=== PATIENT | female | born 1980 | race Caucasian/White ===

== ENCOUNTER 2021-12-25 18:05 | Outpatient (CLI) | payer OTHER, SELFPAY | END 2021-12-25 18:06 | disposition home or self-care (01) | LOC: LKVREF 12-29 14:53 | PROVIDERS: Visit Provider Nurse Practitioner Family | DX: N39.0 Urinary tract infection, site not specified (principal); R30.0 Dysuria | CPT/HCPCS: 87086; 87186 ==

== ENCOUNTER 2022-02-21 10:46 | Outpatient (CLI) | payer OTHER, SELFPAY ==
[2022-02-21 21:44] LABS: Chloride* 109 mmol/L (96-114)
[2022-02-21 21:45] LABS: Potassium* 4.4 mmol/L (3.6-5.1); Sodium* 141 mmol/L (135-149)
[2022-02-21 21:47] LABS: Creatinine* 0.7 mg/dL (0.5-1.5); Estimated Glomerular Filt Rate 110 ml/min
[2022-02-21 21:48] LABS: Blood Urea Nitrogen* 17 mg/dL (5-24); Calcium* 9.3 mg/dL (8.4-10.6); Carbon Dioxide* 25 mmol/L (20-32); Glucose* 66 mg/dL (60-115)
== END 2022-02-21 10:47 | disposition home or self-care (01) ==
PROVIDERS: PCP Emergency Medicine; Visit Provider Emergency Medicine
DX: R30.0 Dysuria (principal); I10 Essential (primary) hypertension
CPT/HCPCS: 80048; 87086

== ENCOUNTER 2022-03-22 10:42 | Outpatient (CLI) | payer OTHER, BC, SELFPAY | END 2022-03-22 10:43 | disposition home or self-care (01) | LOC: OP CLINIC 10:44 | PROVIDERS: PCP Emergency Medicine; Visit Provider Surgery | DX: K62.5 Hemorrhage of anus and rectum (principal); K63.5 Polyp of colon; K64.8 Other hemorrhoids; K57.30 Diverticulosis of large intestine without perforation or abscess without bleeding | CPT/HCPCS: 45385; 88305; J1200; J2250; J3010 ==

== ENCOUNTER 2023-06-17 07:48 | Emergency (ER) | payer BC, SELFPAY ==
[2023-06-17] VITALS (30 sets, daily range): BP systolic 114–152; BP diastolic 75–129; PULSE 51–71; RESP 18; TEMP 36.1; O2SAT 93–100; BMI 33.3
--- NOTE | 2023-06-17 08:05 | ED.ABDPAIN ---
HPI - Abdominal Pain General Time Seen by Provider: 08:05 Date Seen: 06/17/23 Chief Complaint: Abdominal Pain Stated Complaint: stomach pains radiating to back Time Seen by Provider: 06/17/23 08:04 Source: patient Mode of arrival: ambulatory Limitations: no limitations History of Present Illness HPI narrative: Louise is a very pleasant 43-year-old female with history of pancreatitis 10 years ago unknown etiology, cholecystectomy 15 years ago without complications who comes to the emergency room with the onset of upper abdominal pain at approximately 0530 while she was at work. Patient notes that she had similar occurrence about a year ago, went to the emergency room but after 3 hours of waiting by the time she was seen her pain was resolving. Discomfort today is located in that epigastrium and radiates around both sides of her back pain seems to be a little more severe on the right CVA area. She is nauseated but has not vomited. She does feel somewhat bloated but more of a pressure in her upper abdomen. She has not had any diarrhea or constipation. No fever to report but feels like she has had chills since the onset of her pain. Occasional use of alcohol, no recent trauma, no chest pain to report. Related Data Home Medications Medication Instructions Recorded Confirmed amlodipine 5 mg tablet 5 mg PO 12/25/21 05/22/23 lisinopril 06/17/23 Allergies Allergy/AdvReac Type Severity Reaction Status Date / Time acetaminophen [From Vicodin] Allergy Severe Hives Verified 05/22/23 13:45 hydrocodone [From Vicodin] Allergy Severe Hives Verified 05/22/23 13:45 insect venom Allergy Severe Anaphylaxis Verified 05/22/23 13:45 latex Allergy Intermediate Rash Verified 05/22/23 13:45 Review of Systems Status of ROS Reports: 10 or more systems reviewed and unremarkable except as noted in History and below Const Reports: chills; Denies: fever ENMT Denies: neck pain, throat swelling or difficulty swallowing Cardio Denies: chest pain or shortness of breath with exertion Resp Denies: shortness of breath GI Reports: abdominal pain and nausea; Denies: vomiting, diarrhea, constipation, difficulty swallowing or blood in stool Denies: painful urination Musculo Reports: back pain; Denies: neck pain Allergy/Immuno Denies: throat swelling PFSH [facility] Medical History Chronic pelvic pain in female ?R10.2 - Pelvic and perineal pain (ICD-10) ?G89.29 - Other chronic pain (ICD-10) Hypertension ?I10 - Essential (primary) hypertension (ICD-10) BRBPR (bright red blood per rectum) ?K62.5 - Hemorrhage of anus and rectum (ICD-10) Epistaxis ?R04.0 - Epistaxis (ICD-10) Dysuria ?R30.0 - Dysuria (ICD-10) Surgical History Hx of cholecystectomy ?Z90.49 - Acquired absence of other specified parts of digestive tract (ICD-10) History of appendectomy ?Z90.49 - Acquired absence of other specified parts of digestive tract (ICD-10) Family History Mother Diabetes Osteoporosis Thyroid disease Depression Aunt Thyroid disease Family/Other Depression Abuse, drug or alcohol Maternal Grandfather Diabetes Stroke Heart disease Family/Other Depression Social History Smoking Status: Former smoker How often do you have a drink containing alcohol: 2-4 times a month AUDIT-C Alcohol total score: 2 Non-prescribed substance use: marijuana (any form) Little interest or pleasure in doing things: several days Exam Narrative: Exam Narrative: Louise is alert and oriented. She is in obvious discomfort. Eyes are clear. No evidence of jaundice. Face is symmetrical. Speaking normally. Neck is supple. No lymphadenopathy Heart with a regular rate and rhythm. Lungs are clear bilaterally. Abdomen shows tenderness throughout. Bowel sounds are decreased but present. Moving all extremities. No unusual rashes noted. Const: Vital Signs, click to edit/add: Vital Signs - 24 hr 06/17/23 07:49 06/17/23 09:39 06/17/23 09:40 Temperature 97 F L Pulse Rate 51 L 57 L Pulse Rate [Pulse Oximeter] 64 Respiratory Rate 18 Blood Pressure 142/89 H Blood Pressure [Ri ght Upper Arm] 139/84 Pulse Oximetry 100 100 100 Oxygen Delivery Me thod Room Air 06/17/23 09:45 06/17/23 10:00 06/17/23 10:02 Temperature Pulse Rate 66 58 L 61 Pulse Rate [Pulse Oximeter] Respiratory Rate Blood Pressure 119/79 Blood Pressure [Ri ght Upper Arm] Pulse Oximetry 97 93 94 Oxygen Delivery Me thod 06/17/23 10:15 06/17/23 10:30 06/17/23 10:32 Temperature Pulse Rate 59 L 61 61 Pulse Rate [Pulse Oximeter] Respiratory Rate Blood Pressure 114/75 Blood Pressure [Ri ght Upper Arm] Pulse Oximetry 94 97 98 Oxygen Delivery Me thod 06/17/23 10:45 06/17/23 11:00 06/17/23 11:02 Temperature Pulse Rate 57 L 57 L 66 Pulse Rate [Pulse Oximeter] Respiratory Rate Blood Pressure 133/87 Blood Pressure [Ri ght Upper Arm] Pulse Oximetry 98 98 95 Oxygen Delivery Me thod 06/17/23 11:03 06/17/23 11:15 06/17/23 15:22 Temperature Pulse Rate 58 L 55 L 60 Pulse Rate [Pulse Oximeter] Respiratory Rate Blood Pressure 144/129 H Blood Pressure [Ri ght Upper Arm] Pulse Oximetry 98 99 98 Oxygen Delivery Me thod 06/17/23 15:23 06/17/23 15:29 06/17/23 15:30 Temperature Pulse Rate 59 L 66 63 Pulse Rate [Pulse Oximeter] Respiratory Rate Blood Pressure 144/113 H Blood Pressure [Ri ght Upper Arm] Pulse Oximetry 98 99 98 Oxygen Delivery Me thod 06/17/23 15:45 06/17/23 16:00 06/17/23 16:15 Temperature Pulse Rate 56 L 58 L 51 L Pulse Rate [Pulse Oximeter] Respiratory Rate Blood Pressure Blood Pressure [Ri ght Upper Arm] Pulse Oximetry 98 95 98 Oxygen Delivery Me thod 06/17/23 16:30 06/17/23 16:32 06/17/23 16:45 Temperature Pulse Rate 71 55 L 55 L Pulse Rate [Pulse Oximeter] Respiratory Rate Blood Pressure 152/90 H Blood Pressure [Ri ght Upper Arm] Pulse Oximetry 96 95 94 Oxygen Delivery Me thod 06/17/23 17:00 06/17/23 17:02 Temperature Pulse Rate 57 L 55 L Pulse Rate [Pulse Oximeter] Respiratory Rate Blood Pressure 130/80 Blood Pressure [Ri ght Upper Arm] Pulse Oximetry 96 98 Oxygen Delivery Me thod Documenting provider has reviewed patient's vital signs: yes Course Course ED Course: At this time differential diagnosis includes but is not limited to small-bowel obstruction, colitis, viral gastroenteritis, pancreatitis, angina, constipation. Will place an IV and give Toradol 15 mg IV, Zofran 4 mg IV and 1 L of normal saline. Labs will include CBC, comprehensive, lactate, lipase, CRP, troponin. Will also perform EKG and abdominal CT with contrast. Patient and her are comfortable with this plan Reevaluation(s) Reevaluation #1: Post Toradol and Zofran administration patient feels like her pain is gone from 8 down to 3. 1027 hours-patient continues to feel well. CT results show a dilated common bile duct. Her LFTs are elevated. I had the pleasure of speaking with our director surgical Dr. Avitia who does suggest MRCP and GI consult for possible EUS. Reevaluation #2: Patient has remained stable and Toradol controlled her pain for extended period. She is now requesting pain medicine and Dilaudid 0.5 mg IV is given. In spite of a allergy to Vicodin which caused hives she has been tolerant of Dilaudid in the past. Her transfers still pending. Consultations Consultation #1: I consulted with Dr. Valdivia, GI specialist who does suggest transfer and admission for EUS. Vital Signs Vital signs: Initial Vital Signs Temperature 97 F L 06/17/23 07:49 Temperature Source Temporal Artery Scan 06/17/23 07:49 Pulse Rate 64 06/17/23 07:49 Respiratory Rate 18 06/17/23 07:49 Blood Pressure 139/84 06/17/23 07:49 Blood Pressure Mean 102 06/17/23 07:49 Blood Pressure Position Supine 06/17/23 07:49 Pulse Oximetry 100 06/17/23 07:49 Oxygen Delivery Method Room Air 06/17/23 07:49 Vital Signs Temperature 97 F L 06/17/23 07:49 Pulse Rate 64 06/17/23 07:49 Respiratory Rate 18 06/17/23 07:49 Blood Pressure 139/84 06/17/23 07:49 Pulse Oximetry 100 06/17/23 07:49 Oxygen Delivery Method Room Air 06/17/23 07:49 Temperature 97 F L 06/17/23 07:49 Pulse Rate 55 L 06/17/23 17:02 Respiratory Rate 18 06/17/23 07:49 Blood Pressure 130/80 06/17/23 17:02 Pulse Oximetry 98 06/17/23 17:02 Oxygen Delivery Method Room Air 06/17/23 07:49 Medications Administered Medications: Generic Name Dose Route Start Last Admin Trade Name Arlette PRN Reason Stop Dose Admin Sodium Chloride 1,000 mls @ 125 mls/hr 06/17/23 14:43 06/17/23 15:23 0.9 % Sodium Chloride 1000 Ml IV 125 mls/hr .Q8H JARRED Administration Discontinued Medications Generic Name Dose Route Start Last Admin Trade Name Arlette PRN Reason Stop Dose Admin Hydromorphone HCl 0.5 mg 06/17/23 15:23 06/17/23 15:28 Hydromorphone 0.5 Mg/0.5 Ml Inj IVP 06/17/23 15:24 0.5 mg ONCE ONE Administration Sodium Chloride 1,000 mls @ 1,000 mls/hr 06/17/23 08:17 06/17/23 10:00 0.9 % Sodium Chloride 1000 Ml IV 06/17/23 09:16 Infused .Q1H JARRED Infusion Ketorolac Tromethamine 15 mg 06/17/23 08:15 06/17/23 08:40 Ketorolac 15 Mg/Ml Inj IVP 06/17/23 08:16 15 mg ONCE ONE Administration Ondansetron HCl 4 mg 06/17/23 08:15 06/17/23 08:40 Ondansetron 2 Mg/Ml Inj IVP 06/17/23 08:16 4 mg ONCE ONE Administration MDM - Abdominal Pain MDM Narrative Medical decision making narrative: 1. Abdominal pain-this is much improved after Toradol and Zofran. Normal saline fluids given. 2. Dilated common bile duct-initial CT showed dilation of the common bile duct to 10 mm. Associated elevated liver function tests noted in the absence of a gallbladder. AST elevated to 297 and ALT to 123. Lipase, alkaline phosphatase and bilirubin all within normal limits. White count, CRP, lactate and lipase all within normal limits and there is no evidence of pancreatitis on CT. MRCP accomplished shows dilatation to the level of the ampullary. No obvious stone or mass but appearance is concerning for some sort of obstruction. I initially spoke with GI Dr. Valdivia who suggests EUS. I then spoke to Dr. Rodriguez, hospitalist who has accepted the patient to [facility]. Unfortunately there will be a 4-8 hour delay and therefore patient will be placed back on maintenance fluids. 3. Disposition-transfer to [facility] once we are cleared to go. Dr. Rodriguez has accepted this patient. Patient and her significant other are thinking about private vehicle which at this time I feel is fine given that there is no evidence of sepsis. Lab Data Attestation: I reviewed the patient's lab results. Labs: Lab Results 06/17/23 06/17/23 06/17/23 Range/Units 07:59 08:15 08:26 WBC 7.82 (4.50-11.00) K/uL RBC 4.23 (4.00-5.20) m/uL Hgb 12.4 (12.0-16.0) gm/dL Hct 38.0 (33.0-51.0) % MCV 90 (80-100) fL MCH 29 (26-34) pg MCHC 33 (32-36) gm/dL RDW Coeff of Alexus 13.1 (11.5-15.5) % Plt Count 259 (140-440) K/uL Neut % (Auto) 75.3 H (42.0-72.0) % Lymph % (Auto) 14.3 L (20-44) % [place] % (Auto) 9.6 (0.0-11.0) % Eos % (Auto) 0.4 (0.0-7.0) % Baso % (Auto) 0.4 (0.0-3.0) % Neut # (Auto) 5.90 (1.7-7.0) K/uL Lymph # (Auto) 1.10 (0.90-2.90) K/uL [place] # (Auto) 0.80 (0.00-0.90) K/UL Eos # (Auto) 0.03 (0.00-0.50) K/uL Baso # (Auto) 0.03 (0.00-0.30) K/uL Abs Immat Gran (auto) 0.00 (0.00-0.30) K/uL Imm/Tot Granulo (auto) 0.0 % Sodium 138 (135-149) mmol/L Potassium 3.5 L (3.6-5.1) mmol/L Chloride 110 (96-114) mmol/L Carbon Dioxide 22 (20-32) mmol/L Anion Gap 6 L (7-15) mEq/L BUN 11 (5-24) mg/dL Creatinine 0.7 (0.5-1.5) mg/dL Estimated Creat Clear 91.32 Estimated GFR 109 ml/min Glucose 110 (60-115) mg/dL Lactate 1.8 (0.5-1.9) mmol/L Calcium 9.4 (8.4-10.6) mg/dL Total Bilirubin 1.1 (0.1-1.5) mg/dL AST 294 H (12-35) U/L ALT 123 H (4-35) U/L Alkaline Phosphatase 149 (40-150) U/L C-Reactive Protein < 0.5 L (0.5-1.0) mg/dL Total Protein 7.6 (6.0-8.3) g/dL Albumin 4.3 (3.3-5.0) g/dL Lipase 128 (23-300) U/L Urine Color Yellow (Yellow) Urine Appearance Clear (Clear) Urine pH 7.0 (5.0-8.5) Ur Specific [place] 1.015 (1.000-1.030) Urine Protein Negative (Negative) Urine Glucose (UA) Negative (Negative) Urine Ketones Negative (Negative) Urine Blood Negative (Negative) Urine Nitrite Negative (Negative) Urine Bilirubin Negative (Negative) Urine Urobilinogen 0.2 (0.2-1.0) Ur Leukocyte Esterase Negative (Negative) Urine RBC 0-2 (0-2) Urine WBC 2-5 (0-5) Ur Squamous Epith Cells Few (None-Few) Urine Bacteria Few A (None) Lab Acknowledgement Test Added POC Troponin I 0.00 L (0.01-0.04) ng/ml Imaging Data CT scan - abdomen: Attestation: I have reviewed the pertinent imaging results. My impression: I do not note any pancreatitis. Radiologist's impression: 1. Moderate intra and extrahepatic biliary ductal dilation with the common duct measuring about 10 millimeters. This might be a reservoir phenomena associated with prior cholecystectomy. A somewhat prominent. Correlate with LFTs. Follow-up evaluation should be considered as clinically warranted. 2. The kidneys appear normal without specific breast because for CVA tenderness. There is no evidence of pancreatitis by CT MRCP abdomen: Attestation: I have reviewed the pertinent imaging results. Radiologist's impression: Moderate extrahepatic ductal dilation to the level of the ampulla without definite mass or stone. There is some abrupt cut off/shouldering which could suggest ampullary dysfunction. Recommend trending of LFTs, bilirubin. If there is persistent clinical concern, consider endoscopic evaluation for more definitive diagnosis. Incidentally, there is a rounded hypointensity in the proximal common bile duct (series 11/image 18), only seen on some sequences and favored to be related to artifact from adjacent cholecystectomy clips. Please refer to final dictated report for further evaluation. ECG Data Attestation: I personally reviewed and interpreted this ECG as follows: ECG interpretation date: 06/17/23 Interpretation: EKG by my read shows sinus bradycardia at a rate of 58. I do not note any acute ST or T-wave changes. QT and NE intervals within normal limits. Discharge Plan Discharge Clinical Impression: Common bile duct dilatation, Elevated liver function tests Abdominal pain Qualifiers: Abdominal location: epigastric Qualified Code(s): R10.13 - Epigastric pain Patient Disposition: [facility] Discharge Location: [facility] Condition: Improved
[2023-06-17 08:06] LABS: Appearance Urine Clear (Clear); Bilirubin Urine Negative (Negative); Blood Urine Negative (Negative); Color Urine Yellow (Yellow); Glucose Urine Negative (Negative); Ketones Urine Negative (Negative); Leukocyte Esterase Urine Negative (Negative); Nitrite Urine Negative (Negative); Protein Urine Negative (Negative); Specific Gravity Urine 1.015 (1.000-1.030); Urobilinogen Urine 0.2 (0.2-1.0)
--- NOTE | 2023-06-17 08:18 | CT_ITS ---
Patient: KAYLIN NEWSOME Facility:?[facility] Patient ID:?[id number] Site Patient ID:?[id number]. Site :?1980 Study:?CT-Abdomen/Pelvis w/ 98cc [id number]/18/2024 9:28:59 AM Ordering Physician:Keri Martinez Final Report: INDICATION: Epigastric and right CVA pain. History of cholecystectomy and pancreatitis. COMPARISON: There are no prior CTs available for comparison. TECHNIQUE: CT examination of the abdomen and pelvis was performed following the uneventful intravenous administration of 98 cc of Isovue 370. Thin section axial images were obtained from the lung bases through the pubic symphysis. Oral contrast was not administered. Please note that all CT scans at this facility use dose modulation, iterative reconstruction, and/or weight-based dosing when appropriate to reduce radiation dose to as low as reasonably achievable. FINDINGS: LUNG BASES: The lung bases as visualized appear normal.The heart size is normal at the lung bases. LIVER/BILIARY SYSTEM:There is hepatic steatosis. There is moderate intra and extrahepatic biliary ductal dilation with the common duct measuring about 10 millimeters. This may be reservoir phenomena associated with cholecystectomy but somewhat prominent for patient age. Correlate with LFTs and further evaluation as clinically warranted.The gallbladder is surgically absent ADRENALS: Normal KIDNEYS, URETERS and BLADDER:The kidneys appear normal. No visible mass, calculus or hydronephrosis. The ureters and bladder as visualized appear normal. SPLEEN:Normal appearance. PANCREAS: Appears normal. RETROPERITONEUM and MESENTERY: There is no mass, adenopathy or aortic aneurysm. GASTROINTESTINAL SYSTEM: There is no evidence of diverticulitis, colitis, mechanical obstruction, or appendicitis. The small bowel as visualized appears normal. PELVIS: No mass, adenopathy or free fluid. OSSEOUS STRUCTURES and ABDOMINAL WALL: There is an age-appropriate appearance of the osseous structures.No significant abdominal wall defect. OTHER: No free fluid or free air. IMPRESSION: 1. Moderate intra and extrahepatic biliary ductal dilation with the common duct measuring about 10 millimeters. This might be a reservoir phenomena associated with prior cholecystectomy. A somewhat prominent. Correlate with LFTs. Follow-up evaluation should be considered as clinically warranted. 2. The kidneys appear normal without specific breast because for CVA tenderness. There is no evidence of pancreatitis by CT Please note that all CT scans at this facility use dose modulation, iterative reconstruction, and/or weight-based dosing when appropriate to reduce radiation dose to as low as reasonably achievable. Dictated by Kevon Tan MD @ 06/17/2023 9:58:16 AM Signed by:?Kevon Tan MD @06/17/2023 9:58:16 AM
[2023-06-17 08:28] LABS: Bacteria Urine Few; RBC Urine 0-2 (0-2); Squamous Epithelial Cell Urine Few (None-Few)
[2023-06-17 08:34] LABS: Lactate* 1.8 mmol/L (0.5-1.9)
[2023-06-17 08:36] LABS: Hemoglobin* 12.4 gm/dL (12.0-16.0); Mean Corpuscular HGB Conc 33 gm/dL (32-36); Mean Corpuscular Hemoglobin 29 pg (26-34); Mean Corpuscular Volume 90 fL (80-100); Neutrophils Percent Auto 75.3 % (42.0-72.0); Platelet Count* 259 K/uL (140-440); RDW Coefficient of Variation % 13.1 % (11.5-15.5); Red Blood Count 4.23 m/uL (4.00-5.20); White Blood Count* 7.82 K/uL (4.50-11.00)
[2023-06-17 08:37] LABS: Basophils Absolute Auto 0.03 K/uL (0.00-0.30); Basophils Percent Auto 0.4 % (0.0-3.0); Eosinophils Absolute Auto 0.03 K/uL (0.00-0.50); Eosinophils Percent Auto 0.4 % (0.0-7.0); Lymphocytes Percent Auto 14.3 % (20-44); Monocytes Percent Auto 9.6 % (0.0-11.0)
[2023-06-17 08:38] LABS: Slide Review Reflex No
[2023-06-17] MEDS: KETOROLAC 15 MG/ML inj IVP (08:40)
[2023-06-17] MEDS: 0.9 % SODIUM CHLORIDE 1000 ml 1,000 ML IV (08:40)
[2023-06-17] MEDS: ONDANSETRON 2 MG/ML inj 4 MG IVP (08:40)
[2023-06-17 08:57] LABS: Albumin* 4.3 g/dL (3.3-5.0); Chloride* 110 mmol/L (96-114)
[2023-06-17 08:58] LABS: Potassium* 3.5 mmol/L (3.6-5.1); Sodium* 138 mmol/L (135-149)
[2023-06-17 09:00] LABS: Bilirubin Total* 1.1 mg/dL (0.1-1.5); Creatinine* 0.7 mg/dL (0.5-1.5); Est. Creatinine Clearance* 91.32; Estimated Glomerular Filt Rate 109 ml/min
[2023-06-17 09:01] LABS: Alanine Aminotransferase* 123 U/L (4-35); Alkaline Phosphatase* 149 U/L (40-150); Anion Gap 6 mEq/L (7-15); Aspartate Amino Transferase* 294 U/L (12-35); Blood Urea Nitrogen* 11 mg/dL (5-24); Calcium* 9.4 mg/dL (8.4-10.6); Carbon Dioxide* 22 mmol/L (20-32); Glucose* 110 mg/dL (60-115); Lipase* 128 U/L (23-300); Total Protein* 7.6 g/dL (6.0-8.3)
[2023-06-17 09:05] LABS: C Reactive Protein* < 0.5 mg/dL (0.5-1.0)
--- NOTE | 2023-06-17 10:32 | MR_ITS ---
Patient: KAYLIN NEWSOME Facility:?[facility] Patient ID:?[id number] Site Patient ID:?[id number] Site :?1980 Study:?MRI-Abdomen W/O MRCP-06/17/2023 12:41:46 PM Ordering Physician:?APRIL GALAVIZ Final Report: INDICATION: Dilated common bile duct. Elevated LFTs. COMPARISON: CT scan of the abdomen and pelvis dated 17 June 2023. TECHNIQUE: Abdominal MRI with T1 and T2 weighted images. No gadolinium administered. Heavily T2 weighted 2D and 3D MRCP images. Findings : No fatty infiltration of the liver. No focal abnormalities identified in the visualized portions of the liver, spleen, pancreas, adrenal glands, and kidneys. No hydronephrosis. Cholecystectomy. Mildly dilated common bile duct measuring up to 1.1 cm. No intrahepatic bile duct dilation. No filling defects in the biliary system. Normal size of the main pancreatic duct. Impression : 1. Mild dilation of the common bile duct with no intrahepatic bile duct dilation. This could be secondary to a previously passed stone. No current choledocholithiasis. 2. Normal size of the main pancreatic duct. Dictated by Jamel Aponte MD @ 06/18/2023 6:52:46 PM Signed by:?Jamel Aponte MD @06/18/2023 6:52:46 PM (Electronic Signature)
[2023-06-17] MEDS: 0.9 % SODIUM CHLORIDE 1000 ml 1,000 ML 125 ML IV (15:23)
[2023-06-17] MEDS: HYDROmorphone 0.5 mg/0.5 ml inj IVP (15:28)
== END 2023-06-17 17:42 | disposition short-term general hospital (02) ==
PROVIDERS: Emergency Provider Family Medicine; PCP Emergency Medicine
DX: K83.8 Other specified diseases of biliary tract (principal); R94.5 Abnormal results of liver function studies
CPT/HCPCS: 36415; 74177; 74181; 80053; 81001; 83605; 83690; 84484; 85025; 86140; 87086; 93005; 96374; 96375; 99285; J1170; J1885; J2405; J7030; Q9967

== ENCOUNTER 2023-06-26 13:19 | Outpatient (CLI) | payer BC, SELFPAY | END 2023-06-26 13:20 | disposition home or self-care (01) | PROVIDERS: PCP Emergency Medicine; Visit Provider Emergency Medicine | DX: I10 Essential (primary) hypertension (principal); R74.01 Elevation of levels of liver transaminase levels; K29.70 Gastritis, unspecified, without bleeding; Z13.6 Encounter for screening for cardiovascular disorders | CPT/HCPCS: 80048; 80061; 80076 ==

== ENCOUNTER 2023-09-18 12:58 | Outpatient (CLI) | payer BC, SELFPAY ==
--- NOTE | 2023-09-18 13:20 | CRLHL7_ITS ---
For Patients: As a result of the Century Cures Act, medical imaging exams and procedure reports are released immediately into your electronic medical record. You may view this report before your referring provider. If you have questions, please contact your health care provider. BILATERAL SCREENING MAMMOGRAM WITH COMPUTER-AIDED DETECTION AND TOMOSYNTHESIS TECHNIQUE: CC and MLO views were obtained. These mammographic images have been obtained using full-field digital technique. These mammographic images were interpreted with the benefit of computer-aided detection. Breast Tomosynthesis was used in this interpretation. COMPARISON FILM: Baseline. FINDINGS: The breasts are heterogeneously dense, which may obscure small masses. IMPRESSION: There is no radiographic evidence for malignancy. ASSESSMENT: BI-RADS Category 1: Negative RECOMMENDATION: Routine screening mammogram in 1 year. A lay language report of this examination will be provided to the patient. Ej Menendez M.D. Diagnostic Radiologist [email or web address] SP/Dictated by: Ej Menendez MD @ 09/19/2023 9:09:00 AM (Electronically Signed)
== END 2023-09-18 12:59 | disposition home or self-care (01) ==
LOC: MAMMO 12:59
PROVIDERS: PCP Emergency Medicine; Visit Provider Emergency Medicine
DX: Z12.31 Encounter for screening mammogram for malignant neoplasm of breast (principal); R92.2 Inconclusive mammogram
CPT/HCPCS: 77063; 77067

== ENCOUNTER 2023-10-07 11:45 | Outpatient (CLI) | payer BC, SELFPAY | END 2023-10-07 11:46 | disposition home or self-care (01) | LOC: NFLDREF 23:37 | PROVIDERS: PCP Emergency Medicine; Referring Provider Emergency Medicine; Visit Provider Nurse Practitioner | DX: N30.01 Acute cystitis with hematuria (principal); B96.20 Unspecified Escherichia coli [E. coli] as the cause of diseases classified elsewhere | CPT/HCPCS: 87086; 87186 ==

== ENCOUNTER 2023-10-10 17:44 | Emergency (ER) | payer BC, SELFPAY ==
[2023-10-10 17:55] VITALS: BP 155/80; PULSE 96; RESP 16; TEMP 37.1; O2SAT 96; BMI 32.1
[2023-10-10 18:23] LABS: Appearance Urine Clear (Clear); Bilirubin Urine Negative (Negative); Blood Urine 1+ (Negative); Color Urine Yellow (Yellow); Glucose Urine Negative (Negative); Ketones Urine Negative (Negative); Leukocyte Esterase Urine Negative (Negative); Nitrite Urine Negative (Negative); Protein Urine Negative (Negative)
[2023-10-10 19:21] LABS: RBC Urine 0-2 (0-2)
[2023-10-10 19:22] LABS: Bacteria Urine Few; Squamous Epithelial Cell Urine Few (None-Few); WBC Urine 0-2 (0-5)
--- NOTE | 2023-10-10 19:26 | ED_ITS ---
HPI - General Adult General Chief complaint: Urogenital Problems, Female Stated complaint: UTI/kidney infection-pain Time Seen by Provider: 10/10/23 19:11 Source: patient Mode of arrival: ambulatory Limitations: no limitations History of Present Illness HPI narrative: 43-year-old female coming in today concerned about UTI symptoms. Patient was diagnosed with a UTI on Saturday and started on Bactrim. She states that she got a call on Saturday to switch her antibiotic and states that she was then put on Macrobid. She has had 3 doses of Macrobid. She continues to have daily fevers, states that she had a fever of 102 today. She continues to have daily chills. She now has increasing pain in the right flank. She denies any blood in her urine. She continues to have dysuria and suprapubic pressure. She is concerned that she is not getting better and comes in today for evaluation. She feels nauseated all the time but has not vomited in the last 5 days. Past surgical history includes appendectomy, cholecystectomy. Related Data Home Medications ?Medication ?Instructions ?Recorded ?Confirmed pantoprazole 40 mg tablet,delayed 40 mg PO BID 06/26/23 10/10/23 release amlodipine 5 mg tablet 5 mg PO DAILY 10/07/23 10/10/23 Previous Rx's ?Medication ?Instructions ?Recorded lisinopril 10 mg tablet 10 mg PO QDAY #90 tabs 06/26/23 sulfamethoxazole 800 1 tab PO BID 7 days #14 tabs 10/07/23 mg-trimethoprim 160 mg tablet nitrofurantoin 100 mg PO BID #14 caps 10/09/23 monohydrate/macrocrystals 100 mg capsule (Macrobid) Allergies Allergy/AdvReac Type Severity Reaction Status Date / Time hydrocodone [From Vicodin] Allergy Severe Hives Verified 10/10/23 17:54 insect venom Allergy Severe Anaphylaxis Verified 10/10/23 17:54 latex Allergy Intermediate Rash Verified 10/10/23 17:54 Review of Systems Status of ROS: Reports: 10 or more systems reviewed and unremarkable except as noted in History and below [facility] Medical History Screening mammogram for breast cancer ?Z12.31 - Encounter for screening mammogram for malignant neoplasm of breast (ICD-10) Hepatic steatosis ?K76.0 - Fatty (change of) liver, not elsewhere classified (ICD-10) Screening for hyperlipidemia ?Z13.220 - Encounter for screening for lipoid disorders (ICD-10) BMI 32.0-32.9,adult ?Z68.32 - Body mass index [BMI] 32.0-32.9, adult (ICD-10) Elevated transaminase level ?R74.01 - Elevation of levels of liver transaminase levels (ICD-10) Gastritis ?K29.70 - Gastritis, unspecified, without bleeding (ICD-10) Pancreatitis ?K85.90 - Acute pancreatitis without necrosis or infection, unspecified (ICD- 10) Chronic pelvic pain in female ?R10.2 - Pelvic and perineal pain (ICD-10) ?G89.29 - Other chronic pain (ICD-10) Hypertension ?I10 - Essential (primary) hypertension (ICD-10) BRBPR (bright red blood per rectum) ?K62.5 - Hemorrhage of anus and rectum (ICD-10) Epistaxis ?R04.0 - Epistaxis (ICD-10) Dysuria ?R30.0 - Dysuria (ICD-10) Surgical History Hx of cholecystectomy ?Z90.49 - Acquired absence of other specified parts of digestive tract (ICD- 10) History of appendectomy ?Z90.49 - Acquired absence of other specified parts of digestive tract (ICD- 10) Family History Mother Diabetes Osteoporosis Thyroid disease Depression Aunt Thyroid disease Family/Other Depression Abuse, drug or alcohol Maternal Grandfather Diabetes Stroke Heart disease Family/Other Depression Brother Suicide Social History Narrative: quit tobacco age 28, 3 etoh/mo, NO NSAIDS, [facility], 24 yr old, 16 yr old, son suicide adopted, daughter adopted , MJ 2x /month Smoking Status: Former smoker How often do you have a drink containing alcohol: 2-4 times a month AUDIT-C Alcohol total score: 2 Non-prescribed substance use: marijuana (any form) Little interest or pleasure in doing things: several days Feeling down, depressed, or hopeless: not at all Exam Narrative: Exam Narrative: Well-nourished well-developed patient in no acute distress. Alert and oriented. Answers questions appropriately. Mood and affect are appropriate. Thoughts are goal oriented and rational. No tangential or magical thinking noted. Patient speaks in full sentences without needing to catch their breath. HEENT: Normocephalic atraumatic. Pupils are equally round reactive to light. Extraocular muscles are intact. Conjunctivae are moist without any icterus noted. Moist mucous membranes. Cardiovascular: Heart is regular rate and rhythm S1 and S2 are present without any murmurs. Lungs: Clear to auscultation bilaterally no wheezes rhonchi or rales are appreciated. Patient takes deep breaths without any discomfort. Abdomen: Soft and nontender nondistended with normal bowel sounds. She does have right-sided CVA tenderness. No suprapubic pain. No pain in the pelvic area. Extremities: Bilateral lower extremities are without edema. Skin: Well perfused. Const: Vital Signs, click to edit/add: Vital Signs - 24 hr 10/10/23 17:55 Temperature 98.8 F Pulse Rate [Pulse Oximeter] 96 Respiratory Rate 16 Blood Pressure [Ri ght Upper Arm] 155/80 H Pulse Oximetry 96 Oxygen Delivery Me thod Room Air Course Course ED Course: UA is unremarkable. She did have 10-25 RBCs in her urine on the 06 of October, today 0-2. CBC shows a slightly elevated white cell count, normal chemistries. We did go ahead and give her a dose of IM Rocephin while she was here. Patient will be sent home with Toradol and she is to continue taking her Macrobid. Vital Signs Vital signs: Initial Vital Signs Temperature 98.8 F 10/10/23 17:55 Temperature Source Temporal Artery Scan 10/10/23 17:55 Pulse Rate 96 10/10/23 17:55 Respiratory Rate 16 10/10/23 17:55 Blood Pressure 155/80 H 10/10/23 17:55 Blood Pressure Mean 105 10/10/23 17:55 Blood Pressure Position Sitting 10/10/23 17:55 Pulse Oximetry 96 10/10/23 17:55 Oxygen Delivery Method Room Air 10/10/23 17:55 Vital Signs Temperature 98.8 F 10/10/23 17:55 Pulse Rate 96 10/10/23 17:55 Respiratory Rate 16 10/10/23 17:55 Blood Pressure 155/80 H 10/10/23 17:55 Pulse Oximetry 96 10/10/23 17:55 Oxygen Delivery Method Room Air 10/10/23 17:55 Temperature 98.8 F 10/10/23 17:55 Pulse Rate 96 10/10/23 17:55 Respiratory Rate 16 10/10/23 17:55 Blood Pressure 155/80 H 10/10/23 17:55 Pulse Oximetry 96 10/10/23 17:55 Oxygen Delivery Method Room Air 10/10/23 17:55 Medical Decision Making MDM Narrative Medical decision making narrative: 43-year-old female with UTI and symptoms concerning for pyelonephritis. Patient has only had 3 doses of the Macrobid so she will continue that. Plan per above. Lab Data Lab results reviewed: Yes I reviewed the patient's lab results Labs: Lab Results 10/10/23 10/10/23 Range/Units 18:09 19:27 WBC 12.59 H (4.50-11.00) K/uL RBC 4.47 (4.00-5.20) m/uL Hgb 12.7 (12.0-16.0) gm/dL Hct 39.4 (33.0-51.0) % MCV 88 (80-100) fL MCH 28 (26-34) pg MCHC 32 (32-36) gm/dL RDW Coeff of Alexus 12.6 (11.5-15.5) % Plt Count 288 (140-440) K/uL Neut % (Auto) 79.5 H (42.0-72.0) % Lymph % (Auto) 9.6 L (20-44) % [place] % (Auto) 9.8 (0.0-11.0) % Eos % (Auto) 0.1 (0.0-7.0) % Baso % (Auto) 0.3 (0.0-3.0) % Neut # (Auto) 10.00 H (1.7-7.0) K/uL Lymph # (Auto) 1.20 (0.90-2.90) K/uL [place] # (Auto) 1.20 H (0.00-0.90) K/UL Eos # (Auto) 0.00 (0.00-0.50) K/uL Baso # (Auto) 0.00 (0.00-0.30) K/uL Abs Immat Gran (auto) 0.10 (0.00-0.30) K/uL Imm/Tot Granulo (auto) 0.7 % Sodium 134 L (135-149) mmol/L Potassium 3.6 (3.6-5.1) mmol/L Chloride 101 (96-114) mmol/L Carbon Dioxide 19 L (20-32) mmol/L Anion Gap 14 (7-15) mEq/L BUN 11 (5-24) mg/dL Creatinine 0.6 (0.5-1.5) mg/dL Estimated Creat Clear 106.55 Estimated GFR 113 ml/min Glucose 119 H (60-115) mg/dL Calcium 9.4 (8.4-10.6) mg/dL Urine Color Yellow (Yellow) Urine Appearance Clear (Clear) Urine pH 7.0 (5.0-8.5) Ur Specific [place] 1.020 (1.000-1.030) Urine Protein Negative (Negative) Urine Glucose (UA) Negative (Negative) Urine Ketones Negative (Negative) Urine Blood 1+ A (Negative) Urine Nitrite Negative (Negative) Urine Bilirubin Negative (Negative) Urine Urobilinogen 2.0 A (0.2-1.0) Ur Leukocyte Esterase Negative (Negative) Urine RBC 0-2 (0-2) Urine WBC 0-2 (0-5) Ur Squamous Epith Cells Few (None-Few) Urine Bacteria Few A (None) Discharge Plan Discharge Clinical Impression: Pyelonephritis Patient Disposition: Home, Self-Care Condition: Stable Additional Instructions: Continue taking Macrobid as prescribed. Okay to take Toradol as needed/as directed for discomfort- take on a full stomach. Continue Tylenol as needed for fevers. If you are not improving in the next 24-48 hours, return to the ER. Toradol sent to [facility]. Prescriptions: No Action pantoprazole 40 mg tablet,delayed release (DR/EC) 40 mg PO BID lisinopril 10 mg tablet 10 mg PO QDAY Qty: 90 3RF amlodipine 5 mg tablet 5 mg PO DAILY sulfamethoxazole-trimethoprim 800-160 mg tablet 1 tab PO BID 7 Days Qty: 14 0RF nitrofurantoin monohyd/m-cryst [Macrobid] 100 mg capsule 100 mg PO BID Qty: 14 0RF Rx Instructions: must administer with a meal/food Follow Up/Referrals: Scarlett Dudley MD [Primary Care Provider] - Stand Alone Forms: MyHealth Info Instructions
[2023-10-10 19:48] LABS: Chloride* 101 mmol/L (96-114); Potassium* 3.6 mmol/L (3.6-5.1); Sodium* 134 mmol/L (135-149)
[2023-10-10 19:50] LABS: Basophils Percent Auto 0.3 % (0.0-3.0); Eosinophils Percent Auto 0.1 % (0.0-7.0); Hematocrit 39.4 % (33.0-51.0); Hemoglobin* 12.7 gm/dL (12.0-16.0); Immature Granulocytes Pct Auto 0.7 %; Lymphocytes Percent Auto 9.6 % (20-44); Mean Corpuscular HGB Conc 32 gm/dL (32-36); Mean Corpuscular Hemoglobin 28 pg (26-34); Mean Corpuscular Volume 88 fL (80-100); Monocytes Percent Auto 9.8 % (0.0-11.0); Neutrophils Percent Auto 79.5 % (42.0-72.0); Platelet Count* 288 K/uL (140-440); RDW Coefficient of Variation % 12.6 % (11.5-15.5); Red Blood Count 4.47 m/uL (4.00-5.20); White Blood Count* 12.59 K/uL (4.50-11.00)
[2023-10-10 19:51] LABS: Anion Gap 14 mEq/L (7-15); Blood Urea Nitrogen* 11 mg/dL (5-24); Calcium* 9.4 mg/dL (8.4-10.6); Carbon Dioxide* 19 mmol/L (20-32); Creatinine* 0.6 mg/dL (0.5-1.5); Est. Creatinine Clearance* 106.55; Estimated Glomerular Filt Rate 113 ml/min; Glucose* 119 mg/dL (60-115)
[2023-10-10 19:59] LABS: Slide Review Reflex No
[2023-10-10] MEDS: LIDOCAINE 1% 5 ml (pf) 5 ML VIAL 2.1 ML IM (20:28)
[2023-10-10] MEDS: cefTRIAXone 1 GM VIAL IM (20:28)
== END 2023-10-10 20:29 | disposition home or self-care (01) ==
PROVIDERS: Emergency Provider Family Medicine; PCP Emergency Medicine
DX: N10 Acute pyelonephritis (principal)
CPT/HCPCS: 36415; 80048; 81001; 85025; 87086; 96372; 99283; 99284; J0696

== ENCOUNTER 2024-10-21 09:23 | Outpatient (CLI) | payer MEDICAID, SELFPAY | END 2024-10-21 09:24 | disposition home or self-care (01) | PROVIDERS: PCP Nurse Practitioner Family; Visit Provider Nurse Practitioner Family | DX: R74.01 Elevation of levels of liver transaminase levels (principal); K76.0 Fatty (change of) liver, not elsewhere classified; R53.83 Other fatigue; M25.50 Pain in unspecified joint | CPT/HCPCS: 80053; 80061; 80076; 82728; 84443; 86038; 86431 ==

== ENCOUNTER 2024-10-23 14:09 | Outpatient (CLI) | payer MEDICAID, SELFPAY ==
[2024-10-26 18:33] LABS: HPV Source Endocervical
[2024-10-29 11:47] LABS: Pap Test Digital Imaging Done
== END 2024-10-23 14:10 | disposition home or self-care (01) ==
PROVIDERS: PCP Nurse Practitioner Family; Visit Provider Nurse Practitioner Family
DX: Z12.4 Encounter for screening for malignant neoplasm of cervix (principal); Z11.51 Encounter for screening for human papillomavirus (HPV)
CPT/HCPCS: 87624; 87625; 88141; 88142; 88175

== ENCOUNTER 2024-12-08 13:45 | Outpatient (CLI) | payer BC, SELFPAY ==
--- NOTE | 2024-12-08 14:00 | CRLHL7_ITS ---
For Patients: As a result of the Century Cures Act, medical imaging exams and procedure reports are released immediately into your electronic medical record. You may view this report before your referring provider. If you have questions, please contact your health care provider. CLINICAL HISTORY: Pelvic and perineal pain COMPARISON: CT 06/17/2023 TECHNIQUE: 2D cowan-scale ultrasound. In addition, color Doppler and spectral Doppler analysis was performed of the pelvis using a transabdominal and transvaginal approach. Transvaginal imaging performed to better visualize the endometrial stripe and ovaries. FINDINGS: Heterogeneous myometrium echotexture. Uterus measures 6.9 x 4.2 x 4.9 cm. Endometrium measures 6 millimeters. The right ovary measures 3.2 x 1.6 x 2.3 cm in size and the left ovary measures 2.6 x 1.5 x 1.6 cm. The ovaries demonstrate normal arterial and venous blood flow on color Doppler and spectral Doppler analysis. There are no suspicious fluid collections within the cul-de-sac. IMPRESSION: Normal ovaries. No suspicious findings. Dictated by Ej Menendez MD @ 12/08/2024 4:12:19 PM (Electronically Signed)
== END 2024-12-08 13:46 | disposition home or self-care (01) ==
LOC: US 13:46
PROVIDERS: PCP Nurse Practitioner Family; Visit Provider Nurse Practitioner Family
DX: R10.2 Pelvic and perineal pain (principal)
CPT/HCPCS: 76830; 76856; 93976

== ENCOUNTER 2024-12-31 15:24 | Outpatient (CLI) | payer BC, SELFPAY | END 2024-12-31 15:25 | disposition home or self-care (01) | PROVIDERS: PCP Nurse Practitioner Family; Visit Provider Obstetrics & Gynecology | DX: N95.1 Menopausal and female climacteric states (principal) | CPT/HCPCS: 82306; 82670; 83001; 84403 ==

== ENCOUNTER 2025-01-25 12:53 | Outpatient (CLI) | payer BC, SELFPAY ==
--- NOTE | 2025-01-25 14:24 | P.ANES_ITS ---
Anesthesia Charges Start Date/Time Anesthesia Start Date: 01/25/25 Anesthesia Start Time: 13:55 Stop Date/Time Anesthesia Stop Date: 01/25/25 Anesthesia Stop Time: 14:20 Coding CPT Codes CPT Codes: ADOLPH LWR INTST NDSC NOS - 17845 ([id number]) P2 - PATIENT W/MILD SYST DISEASE, QK - PLACING JUDGE 2-4 CNCRNT ANES PROC, QX - STEWARD/STEWARDESS CHIEF CARGO VESSEL SVC W/ MD MED DIRECTION
--- NOTE | 2025-01-25 14:24 | W.ANESCHARGE ---
Anesthesia Charges Start Date/Time Anesthesia Start Date: 01/25/25 Anesthesia Start Time: 13:55 Stop Date/Time Anesthesia Stop Date: 01/25/25 Anesthesia Stop Time: 14:20 Coding CPT Codes CPT Codes: ADOLPH LWR INTST NDSC NOS - [id number] ([id number]) P2 - PATIENT W/MILD SYST DISEASE, QK - ENVIRONMENTAL PROFESSIONAL 2-4 CNCRNT ANES PROC, QX - ORDER ENTRY SPECIALIST SVC W/ MD MED DIRECTION
--- NOTE | 2025-01-25 14:29 | P.ANES_ITS ---
Anesthesia Charges Start Date/Time Anesthesia Start Date: 01/25/25 Anesthesia Start Time: 13:55 Stop Date/Time Anesthesia Stop Date: 01/25/25 Anesthesia Stop Time: 14:20 Coding CPT Codes CPT Codes: ADOLPH LWR INTST NDSC NOS - [id number] ([id number]) QK - ELECTRO MECHANICAL ENGINEER 2-4 CNCRNT ADOLPH PROC, QX - SLAB CONDITIONER SUPERVISOR SVC W/ MD MED DIRECTION, P2 - PATIENT W/MILD SYST DISEASE
--- NOTE | 2025-01-25 14:29 | W.ANESCHARGE ---
Anesthesia Charges Start Date/Time Anesthesia Start Date: 01/25/25 Anesthesia Start Time: 13:55 Stop Date/Time Anesthesia Stop Date: 01/25/25 Anesthesia Stop Time: 14:20 Coding CPT Codes CPT Codes: ADOLPH LWR INTST NDSC NOS - [id number] ([id number]) QK - SHOW CARD LETTERER 2-4 CNCRNT ADOLPH PROC, QX - WRITING MANAGER SVC W/ MD MED DIRECTION, P2 - PATIENT W/MILD SYST DISEASE
== END 2025-01-25 12:54 | disposition home or self-care (01) ==
LOC: OP CLINIC 12:53
PROVIDERS: PCP Nurse Practitioner Family; Visit Provider Surgery
DX: Z12.11 Encounter for screening for malignant neoplasm of colon (principal); Z86.0100 Personal history of colon polyps, unspecified; K59.00 Constipation, unspecified; K57.30 Diverticulosis of large intestine without perforation or abscess without bleeding
CPT/HCPCS: 00811; 00812; 45380; 88305; J2704

== ENCOUNTER 2025-02-10 13:53 | Outpatient (CLI) | payer BC, SELFPAY ==
--- NOTE | 2025-02-10 14:00 | CRLHL7_ITS ---
For Patients: As a result of the Century Cures Act, medical imaging exams and procedure reports are released immediately into your electronic medical record. You may view this report before your referring provider. If you have questions, please contact your health care provider. COMPARISON: 09/18/2023, 09/30/2018 TECHNIQUE: Digital mammogram in CC and MLO projections including computer-aided detection (CAD) and tomosynthesis. BREAST COMPOSITION: There are scattered areas of fibroglandular density. FINDINGS: No suspicious findings. ASSESSMENT: BI-RADS 2 Benign RECOMMENDATION: Annual screening mammogram. A lay language report of this examination will be provided to the patient. Dictated by: Ej Menendez MD @ 02/11/2025 08:59:12 (Electronically Signed)
== END 2025-02-10 13:54 | disposition home or self-care (01) ==
PROVIDERS: PCP Nurse Practitioner Family; Visit Provider Emergency Medicine
DX: Z12.31 Encounter for screening mammogram for malignant neoplasm of breast (principal)
CPT/HCPCS: 77063; 77067